=== PATIENT | female | born 1950 | race Caucasian/White ===

== ENCOUNTER 2023-10-23 09:42 | Outpatient (CLI) | payer MEDICARE, SELFPAY | END 2023-10-23 09:43 | disposition home or self-care (01) | PROVIDERS: PCP Family Medicine; Visit Provider Family Medicine | DX: Z00.00 Encounter for general adult medical examination without abnormal findings (principal); E78.5 Hyperlipidemia, unspecified; M81.0 Age-related osteoporosis without current pathological fracture; Z13.6 Encounter for screening for cardiovascular disorders; Z78.0 Asymptomatic menopausal state | CPT/HCPCS: 80053; 80061; 82306 ==